=== PATIENT | male | born 1960 | race Caucasian/White ===

== ENCOUNTER 2016-08-15 19:49 | Emergency (ER) | payer MEDICARE, OTHER | END 2016-08-15 21:42 | disposition home or self-care (01) | LOC: ER 19:49 | DX: S52.501A Unspecified fracture of the lower end of right radius, initial encounter for closed fracture (principal); W17.89XA Other fall from one level to another, initial encounter; Y92.018 Other place in single-family (private) house as the place of occurrence of the external cause | CPT/HCPCS: 73090; 73110; 99283 ==